=== PATIENT | female | born 1995 | race Caucasian/White ===

== ENCOUNTER 2019-05-09 21:22 | Emergency (ER) | payer BC ==
[2019-05-09 22:27] LABS: #Eosinphils 0.3 thou/uL (0.0-0.7); #Lymphocytes 0.9 thou/uL (1.20-3.40); #Monocytes 0.5 thou/uL (0.11-0.59); #Neutrophils 2.7 thou/uL (1.40-6.50); %Basophils 0.2 % (0.0-1.0); %Eosinophils 6.7 % (0.0-10.0); %Lymphocytes 19.7 % (21.0-51.0); %Monocytes 12.3 % (0.0-10.0); %Neutrophils 61.1 % (42.0-75.0); Hemoglobin 14.5 g/dL (12.0-16.0); Mean Corpuscular HGB CONC 34.5 g/dL (32.0-36.0); Mean Corpuscular Hemoglobin 29.6 pg (27.0-31.0); Platelet Count 255 thou/uL (130-400); RBC Distribution Width 10.9 % (11.5-14.5); Red Blood Cell (RBC) Count 4.88 mill/uL (4.20-5.40); White Blood Cell (WBC) Count 4.3 thou/uL (4.8-10.8)
[2019-05-09 22:50] LABS: ALT (SGPT) 23 U/L (8-55); AST (SGOT) 17 U/L (5-34); Albumin 4.5 g/dL (3.5-5.0); Alkaline Phosphatase 84 U/L (40-150); Anion Gap 11 mmol/L (10-20); BUN (Urea Nitrogen) 13 mg/dL (7.0-18.7); Bilirubin, Total 0.2 mg/dL (0.2-1.2); Calc. Creatinine Clearance 0 mL/min (70-130); Calcium 9.4 mg/dL (7.8-10.44); Carbon Dioxide 24 mmol/L (22-29); Chloride 104 mmol/L (98-107); Estimated GFR-MDRD 65; Globulin 2.8 g/dL (2.4-3.5); Glucose 100 mg/dL (70-105); Protein, Total 7.3 g/dL (6.0-8.3); Sodium 135 mmol/L (136-145)
== END 2019-05-10 00:10 | disposition home or self-care (01) ==
LOC: ERS 21:22
DX: B05.9 Measles without complication (principal); T36.8X5A Adverse effect of other systemic antibiotics, initial encounter; D68.51 Activated protein C resistance; Z79.82 Long term (current) use of aspirin; Z79.899 Other long term (current) drug therapy
CPT/HCPCS: 36415; 80053; 85025; 87081; 87430; 99283

== ENCOUNTER 2019-06-10 08:33 | Outpatient (CLI) | payer OTHER ==
[2019-06-10 09:18] LABS: Estimated GFR-MDRD - POC Greater than 90
--- NOTE | 2019-06-10 10:26 | CT ---
CT Abdomen Pelvis W Con History: Abdominal pain Comparison: None. Findings: Lung bases are clear. No pericardial effusion. Pancreas, spleen, liver, gallbladder are all unremarkable. The aortoiliac contour is nonaneurysmal. There is a hypodensity in the right adnexa measuring up to 3 cm in size. No left adnexal hypodensity is appreciated. No dilated loops of large or small bowel. The appendix is visualized and is normal. There are mildly enlarged ileocolic mesenteric lymph nodes likely reactive in nature. No hydronephrosis. Aortoiliac contour is normal. Hemangioma of the L2 vertebral body. No acute osseous abnormality. Impression: 3 cm hypodensity in the right adnexa not abnormal in a patient of this age. Recommend cor relation with outside imaging as none is available for review here.
== END 2019-06-10 08:34 | disposition home or self-care (01) ==
LOC: CT 08:33
PROVIDERS: ATTEND Surgery
DX: R19.00 Intra-abdominal and pelvic swelling, mass and lump, unspecified site (principal)
CPT/HCPCS: 74177; 82565

== ENCOUNTER 2019-06-15 07:48 | Outpatient (CLI) | payer OTHER ==
--- NOTE | 2019-06-15 08:59 | ULT ---
ULTRASOUND ABDOMEN COMPLETE: Date: 06/15/19 HISTORY: Right upper quadrant pain. COMPARISON: CT examination dated 06/10/19. FINDINGS: Real-time Sales scale and color evaluation of the abdomen was performed. Visualized portions of the aorta, IVC, and pancreas are unremarkable. Normal hepatic echotexture with out mass. Gallbladder is normal. No pericholecystic fluid. Portal vein is patent with antegrade flow. Gallbladd er wall thickness is normal. Common bile duct measures 3.0 mm, normal. Right kidney measures 10.4 x 4.5 x 4.6 cm without mass, hydronephrosis, or abnormal calcifications. Spleen measures 10.7 cm in length. Left kidney measures 10.9 x 5.3 x 4.6 cm without mass, hydronephrosis, or abnormal calcifications. IMPRESSION: Normal examination of the abdomen. POS: H
== END 2019-06-15 07:49 | disposition home or self-care (01) ==
LOC: BICULT 07:48
PROVIDERS: ATTEND Specialist
DX: R10.11 Right upper quadrant pain (principal)
CPT/HCPCS: 76700